=== PATIENT | male | born 1950 ===

== ENCOUNTER 2019-01-24 05:59 | Day surgery (SDC) | payer OTHER ==
[~2019-01-24] VITALS: Ht 180.3 cm; Wt 90.7 kg
[2019-01-24] MEDS ORDERED: LIDOCAINE 2% 100 MG/5 ML UJET TP ONE (08:13)
[2019-01-24] MEDS ORDERED: fentaNYL 0.05 MG/ML VIAL ONE (08:13)
[2019-01-24] MEDS ORDERED: fentaNYL 0.05 MG/ML VIAL IVP ONE (09:40)
== END 2019-01-24 09:31 | disposition home or self-care (01) ==
LOC: MDS 05:59 → MMU 06:10 → MDS 09:31
PROVIDERS: ATTEND Internal Medicine Gastroenterology
DX: K57.30 Diverticulosis of large intestine without perforation or abscess without bleeding (principal); K63.89 Other specified diseases of intestine; R19.5 Other fecal abnormalities; E66.3 Overweight; I10 Essential (primary) hypertension; E11.9 Type 2 diabetes mellitus without complications; Z68.27 Body mass index [BMI] 27.0-27.9, adult; Z72.89 Other problems related to lifestyle; Z79.84 Long term (current) use of oral hypoglycemic drugs; Z79.899 Other long term (current) drug therapy; Z80.0 Family history of malignant neoplasm of digestive organs
CPT/HCPCS: 45378; J3010